=== PATIENT | female | born 1995 | race Two or more races ===

== ENCOUNTER 2025-06-25 09:08 | Outpatient (CLI) | payer OTHER | END 2025-06-25 09:09 | disposition home or self-care (01) | LOC: PRENATAL 09:08 | PROVIDERS: ATTEND Obstetrics & Gynecology Maternal & Fetal Medicine | DX: O44.00 Complete placenta previa NOS or without hemorrhage, unspecified trimester (principal); O36.1999 Maternal care for other isoimmunization, unspecified trimester, other fetus; Z3A.20 20 weeks gestation of pregnancy ==

== ENCOUNTER 2025-09-24 10:09 | Outpatient (CLI) | payer OTHER | END 2025-09-24 10:10 | disposition home or self-care (01) | LOC: PRENATAL 10:09 | PROVIDERS: ATTEND Obstetrics & Gynecology Maternal & Fetal Medicine | DX: O26.843 Uterine size-date discrepancy, third trimester (principal); O36.8130 Decreased fetal movements, third trimester, not applicable or unspecified; O36.1930 Maternal care for other isoimmunization, third trimester, not applicable or unspecified; Z3A.33 33 weeks gestation of pregnancy ==